=== PATIENT | female | born 1965 | race African-American/Black ===

== ENCOUNTER 2019-07-11 16:25 | Emergency (ER) | payer BC, OTHER ==
[~2019-07-11] VITALS: Ht 177.8 cm; Wt 86.2 kg
[2019-07-11 16:29] VITALS: BP 119/72
[2019-07-11] MEDS ORDERED: KEFLEX500 M1 PO (16:47)
== END 2019-07-11 17:09 | disposition home or self-care (01) ==
LOC: ER 16:25
DX: L03.116 Cellulitis of left lower limb (principal); Z98.890 Other specified postprocedural states

== ENCOUNTER 2021-08-21 21:17 | Emergency (ER) | payer BC, OTHER ==
[~2021-08-21] VITALS: Ht 177.8 cm; Wt 81.7 kg
[~2021-08-21 21:17] MED LIST: KEFLEX500 M1 PO
[2021-08-21] MEDS ORDERED: NAPROSYN500 MG PO (21:58)
[2021-08-21] MEDS ORDERED: ONDANSETRON HCL4 M2 PO (21:58)
[2021-08-21 22:30] VITALS: BP 118/69
== END 2021-08-21 22:30 | disposition home or self-care (01) ==
LOC: ER 21:17
DX: R51.9 Headache, unspecified (principal); F32.9 Major depressive disorder, single episode, unspecified